=== PATIENT | female | born 1975 | race Caucasian/White ===

== ENCOUNTER 2017-11-11 11:39 | Emergency (ER) | payer OTHER ==
--- NOTE | 2017-11-11 11:51 | PDOC ---
History of Present Illness - General Chief Complaint: Back Pain Stated Complaint: LOWER RIGHT BACK PAIN Time Seen by Provider: 11/11/17 11:42 History Source: Patient Exam Limitations: No Limitations - History of Present Illness Initial Comments: 11/11/17 12:14 42 year old female with PMH bulging herniated disc presents to ED complaining of right back pain x10 days. She states this pain has been occuring x1.5 years, since she fell flat on her bottom coming down the stairs, occurs about once a month, usually self-resolving with aleve. She describes this pain as burning/ sharp, worse when sitting, better when walking or standing, radiating to her right hip and right leg down to the right knee. She denies taking any medication to alleviate her pain over the last 10 days. She denies diabetes, HTN , IV drug use, fever, chills, nausea, vomiting, numbness, tingling, chest pain, shortness of breath, lightheadedness, dizziness, dysuria, urinary incontinence, bowel incontinence. PCP - Dr. [facility] - pt does not know her orthopedic doctor's name Last MRI - x2 years ago Past History - Past Medical History Allergies/Adverse Reactions: Allergies Allergy/AdvReac Type Severity Reaction Status Date / Time No Known Allergies Allergy Verified 11/11/17 11:46 Home Medications: Ambulatory Orders Naproxen 500 mg PO BID 10 Days #20 tablet 11/11/17 Review of Systems - Review of Systems Able to Perform ROS?: Yes Comments:: 11/11/17 12:19 General: denies fever, chills, night sweats, generalized weakness. HEENT: denies sore throat, rhinorrhea, ear pain. Heart: denies chest pain, palpitations, syncope, lower extremity swelling. Respiratory: denies shortness of breath, cough, sputum production, hematemesis. Abdomen: denies abdominal pain, nausea, vomiting, diarrhea, constipation, blood in stool. : denies dysuria, urinary frequency, hematuria, urinary incontinence. Back: admits to right sided back pain. Musculoskeletal: admits to right leg pain. Neurological: denies headache, dizziness, numbness, tingling, weakness. Skin: denies rash, laceration, abrasion. *Physical Exam - Physical Exam Comments: 11/11/17 12:20 Appearance: comfortable. HEENT: head is normocephalic, atraumatic. EOMI. PERRLA. Neck: supple. Full ROM. Heart: regular rhythm. no murmurs, rubs or gallops. Lungs: clear to auscultation bilaterally. no crackles, rhonchi or wheezing. no stridor. Abdomen: soft, nontender. normal bowel sounds. no rebound, guarding, masses. Back: no c-spine, t-spine or l-spine midline tenderness. Tenderness to right SI joint and right hip. Extremities: Peripheral pulses intact and equal. No lower extremity edema. Neurological: Alert. Oriented x3. CN2-12 intact. 4/5 strength left lower extremity secondary to pain, 5/5 strength all other extremities. Full sensation all extremities and bilateral face. Gait normal. Straight leg test negative bilaterally. Medical Decision Making - Medical Decision Making 11/11/17 12:36 42 year old female with PMH bulging herniated disc presents to ED for 10 days of progressing rigth sacroiliac pain radiating to her right hip and right leg to the knee. Pt has had this pain chronically over the last 1.5 years, usually self-resolving with Aleve, did not take anything for pain for the last x10 days. No systemic symptoms. Denies diabetes, IV drug use, steroid use. Denies urinary incontinence, bowel incontinence, abdominal pain, numbness. 4/5 strength right lower extremity due to pain, otherwise fully neurologically intact. Initial Vital Signs Temp Pulse Resp BP Pulse Ox 99.0 F 72 16 111/60 100 11/11/17 11:41 11/11/17 11:41 11/11/17 11:41 11/11/17 11:41 11/11/17 11:41 Afebrile. No hypotension. No hypoxia. Pending urine test, XR. Toradol for pain. 11/11/17 12:57 Urine test negative. 11/11/17 13:30 XR negative for fracture. Pt reassessed, states pain is decreased to a 2/10. Pt will be discharged with prescription for Naproxen, instructions to follow up with PCP and extension specialist, referral for extension specialist, and strict return precautions. Pt agrees with the plan of care. *DC/Admit/Observation/Transfer Diagnosis at time of Disposition: Sacroiliac joint pain, Back pain - Discharge Dispostion Disposition: HOME Condition at time of disposition: Good Decision to Admit order: No - Prescriptions Prescriptions: Naproxen 500 mg PO BID 10 Days #20 tablet - Referrals Referrals: Solomon Alfaro MD [Primary Care Provider] - Ramon Horn MD [Staff Physician] - - Patient Instructions Printed Discharge Instructions: DI for Low Back Pain, DI Sacroiliac Joint Dysfunction Additional Instructions: You were seen today for back pain. You were given intramuscular Toradol, which is an anti-inflammatory medication, it will last 4-6 hours. The X-ray of your spine, sacrum and hips revealed no fractures. I have sent a prescription for Naproxen 500 mg every 12 hours for 10 days. Do not take both ibuprofen and naproxen at the same time. Stay hydrated, drink water. No heavy lifting for 1-2 weeks, or until the pain has subsided. Please follow up with your primary care physician within 5 days, and bring the paperwork given to you today with you. Please follow up with a extension specialist within 7 days, and bring the paperwork given to you today with you. I have provided you with a referral for a extension specialist, Dr. Horn, please make an appointment with him. Please return to the Emergency Department if you develop fever, nausea, vomiting , burning with urination, increasing pain, weakness or numbness, urinary or bowel incontinence. Please return to the Emergency Department for any new, worsening or concerning symptoms. - Post Discharge Activity Forms/Work/School Notes: Back to Work
[2017-11-11 11:52] VITALS: BP 111/60; PULSE 72; TEMP 99; BMI 22.4
[2017-11-11] MEDS ORDERED: KETOROLAC TROMETHAMINE 30 MG/1 ML VIAL IM ONE (12:13)
[2017-11-11] MEDS ORDERED: KETOROLAC TROMETHAMINE 30 MG/1 ML VIAL ONE (12:17)
--- NOTE | 2017-11-11 12:27 | PDOC ---
Attending Attestation - Resident Resident Name: Savanna Anderson - ED Attending Attestation I have performed the following: I have examined & evaluated the patient, The case was reviewed & discussed with the resident, I agree w/resident's findings & plan, Exceptions are as noted - HPI HPI: 11/11/17 12:21 42 yo F c/ no pmh p/w lower back pain radiating down posterior R leg x 10 days. The patient reports chronic history of lower back pain after she had fell and landed on her buttocsk x 1 year ago. Since then, has had intermittent pain. However, last 10 days, noted that this pain was persistent and radiated down R buttocks, shooting like sensation. Denies numbness, weakness. States flexion of the back worsens symptoms. Pt has had taken alleve in the past which improves her symptoms. Denies urinary or bowel incontinence. - Physicial Exam PE: 11/11/17 12:22 GENERAL: Awake, alert, and fully oriented, in no acute distress HEAD: No signs of trauma EYES: EOMI, sclera anicteric, conjunctiva clear ENT: Auricles normal inspection, hearing grossly normal, nares patent, Moist mucosa NECK: Normal ROM, supple BACK: No tenderness to palpation or stepoffs on spine. TTP right gluteal region. SLR positive 45 degrees on right. Back pain reproducible with flexion. No numbness or decreased strength EXTREMITIES: Normal range of motion, no edema. No clubbing or cyanosis. No cords, erythema, or tenderness NEUROLOGICAL: Cranial nerves II through XII grossly intact. Normal speech, normal gait SKIN: Warm, Dry, normal turgor, no rashes or lesions noted. - Medical Decision Making 11/11/17 12:27 Vital Signs Temp Pulse Resp BP Pulse Ox 99.0 F 72 16 111/60 100 11/11/17 11:41 11/11/17 11:41 11/11/17 11:41 11/11/17 11:41 11/11/17 11:41 I suspect that the patient has sciatica. Lumbar radiograph. NSAIDS. Follow up with spine surgeon for outpatient management. 11/11/17 13:30 Radiograph reviewed by me, pending official radiology read. No acute fractures.
== END 2017-11-11 13:47 | disposition home or self-care (01) ==
LOC: FER 11:39
PROC: 3E0233Z Introduction of Anti-inflammatory into Muscle, Percutaneous Approach (ICD-10-PCS; principal; 2017-11-11)
DX: M53.3 Sacrococcygeal disorders, not elsewhere classified (principal); M54.9 Dorsalgia, unspecified; W18.39XA Other fall on same level, initial encounter; Y93.89 Activity, other specified; Y92.9 Unspecified place or not applicable
CPT/HCPCS: 72100-TC-FY; 84703; 96372; 99282-25

== ENCOUNTER 2019-02-17 13:47 | Emergency (ER) | payer OTHER ==
--- NOTE | 2019-02-17 13:51 | PDOC ---
Attending Attestation - Resident Resident Name: Supa Granado - ED Attending Attestation I have performed the following: I have examined & evaluated the patient, The case was reviewed & discussed with the resident, I agree w/resident's findings & plan, Exceptions are as noted
[2019-02-17 13:56] VITALS: BP 113/41; PULSE 80; TEMP 97.5; BMI 21.4
[2019-02-17] MEDS ORDERED: KETOROLAC TROMETHAMINE 60 MG/2 ML VIAL IM ONE (14:12)
[2019-02-17] MEDS ORDERED: CYCLOBENZAPRINE HCL 10 MG TABLET (FP) PO ONE (14:12)
--- NOTE | 2019-02-17 14:12 | PDOC ---
History of Present Illness - General Chief Complaint: Pain Stated Complaint: LOWER BACK PAIN Time Seen by Provider: 02/17/19 13:51 - History of Present Illness Initial Comments: 02/17/19 14:13 Chief complaint: Back pain HPI: Patient complains of back pain in the left sacral area getting worse for approximately 2 weeks. 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 No other injury or trauma. There is a history of recurrent back pain in the past, with normal MRI and treatment by Dr. Horn, [facility] specialist. She was receiving injections by pain management and doing well until her insurance no longer covered treatment. She has deteriorated since the injections were discontinued. Review of systems: Denies radicular symptoms. Denies headache, URI symptoms, sore throat, cough, chest pain, shortness of breath, abdominal pain, nausea, vomiting, diarrhea. Menses are normal. Pain is unrelated to menstruation. Remainder of systems reviewed and negative Past medical history: Otherwise healthy female, with occupation related back pain as noted. Family history: Reviewed and noncontributory Physical exam: Alert and oriented, well-developed well-nourished, mild distress due to low back pain and stiffness, but otherwise cheerful and cooperative Afebrile, vital signs normal PERRLA 4 mm, fundi benign, ENT clear Neck without tenderness or deformity, full range of motion without pain. No bruits masses or nodes Chest clear to P&A. Full breath sounds bilaterally. No rib cage or chest wall deformity or tenderness CV S1-S2 normal without murmur rub or gallop pulses full and symmetric no JVD or edema no bruits Abdomen nondistended. Bowel sounds normal. Soft without mass tenderness organomegaly. No CVAT Neurological C2 to 12 intact. Strength full and symmetric. No focal sensory or motor deficits. Cerebellar function intact. Gait stable and unimpaired Extremities no CCE Skin clear, no rash, adequate turgor and wet mucous membranes LS spine: Normal lumbar lordosis. No deformity or point tenderness of the vertebral bodies. No inflammatory changes. There is tenderness over the left sacrum. Straight leg raising is negative. As noted above, no sensory or motor deficits Impression, low back pain, aggravation of chronic condition, probably occupational, no sign of radiculopathy, normal MRI in the recent past. Was doing well until pain management injections were discontinued Plan: Symptomatic treatment. Referral back to her [facility] specialist, with attempt to reinitiate pain management therapy. Past History - Past Medical History Allergies/Adverse Reactions: Allergies Allergy/AdvReac Type Severity Reaction Status Date / Time No Known Allergies Allergy Verified 02/17/19 13:49 Home Medications: Ambulatory Orders Cyclobenzaprine HCl [Flexeril -] 10 mg PO TID PRN #20 tablet 02/17/19 Diclofenac Sodium 50 mg PO QID PRN #20 tablet. 02/17/19 Lidocaine 5% Patch [Lidoderm Patch -] 1 patch TP DAILY #30 patch 02/17/19 COPD: No Other medical history: CHRONIC BACK PAIN - Psycho Social/Smoking Cessation Hx Smoking History: Never smoked Have you smoked in the past 12 months: Yes Number of Cigarettes Smoked Daily: 1 Information on smoking cessation initiated: No 'Breaking Loose' booklet given: 11/11/17 Hx Alcohol Use: Yes (SOCIAL) Drug/Substance Use Hx: No Substance Use Type: Alcohol *Physical Exam - Vital Signs Last Vital Signs Temp Pulse Resp BP Pulse Ox 97.5 F L 80 16 113/41 L 100 02/17/19 13:48 02/17/19 13:48 02/17/19 13:48 02/17/19 13:48 02/17/19 13:48 Medical Decision Making - Medical Decision Making 02/17/19 15:02 Feeling much better after medication. Will take a break from driving, attempt to reinitiate pain management consultation, and follow-up primary physician. Fully ambulatory and in no severe pain or other distress at discharge to follow- up as directed Discharge - Discharge Information Problems reviewed: Yes Clinical Impression/Diagnosis: Low back pain Condition: Improved Disposition: HOME - Admission No - Additional Discharge Information Prescriptions: Cyclobenzaprine HCl [Flexeril -] 10 mg PO TID PRN #20 tablet PRN Reason: Back Pain Diclofenac Sodium 50 mg PO QID PRN #20 tablet. PRChacho Reason: Back Pain Lidocaine 5% Patch [Lidoderm Patch -] 1 patch TP DAILY #30 patch - Follow up/Referral Referrals: Ramon Horn MD [Staff Physician] - - Patient Discharge Instructions Patient Printed Discharge Instructions: DI for Low Back Pain - Post Discharge Activity
[2019-02-17] MEDS ORDERED: LIDOCAINE 5% TOPICAL PATCH TP ONE (14:13)
[2019-02-17] MEDS ORDERED: KETOROLAC TROMETHAMINE 60 MG/2 ML VIAL ONE (14:14)
[2019-02-17] MEDS ORDERED: CYCLOBENZAPRINE HCL 10 MG TABLET (FP) ONE (14:14)
[2019-02-17] MEDS ORDERED: LIDOCAINE 5% TOPICAL PATCH ONE (14:15)
[2019-02-17] MEDS ORDERED: LIDOCAINE PATCH REMOVAL MC SCH (22:00)
== END 2019-02-17 15:07 | disposition home or self-care (01) ==
LOC: FER 13:47
PROC: 3E0233Z Introduction of Anti-inflammatory into Muscle, Percutaneous Approach (ICD-10-PCS; principal; 2019-02-17)
DX: M54.5 Low back pain (principal)
CPT/HCPCS: 99282-25